=== PATIENT | female | born 2005 | race Caucasian/White ===

== ENCOUNTER 2024-02-28 15:35 | Emergency (ER) | payer BC, SELFPAY ==
--- NOTE | 2024-02-28 15:56 | ED_ITS ---
Discharge Plan Disposition Patient Disposition: Home, Self-Care Condition: Good Prescriptions Prescriptions: New azithromycin [Zithromax] 250 mg tablet 250 mg PO UD DOSE PK Qty: 6 0RF Rx Instructions: Take two (2) tablets today, then one (1) tablet days #2 thru #5 methylprednisolone 4 mg Tablets,Dose Pack 4 mg PO DIRECTED 6 Days Qty: 21 0RF Rx Instructions: Take 1 pack as directed for 6 days hmgydgqbherhszy-qdldemouo-RB [Bromfed DM] 2-30-10 mg/5 mL Syrup 5 ml PO Q6H PRN (Reason: Cough) Qty: 240 0RF Referrals Follow up/Referrals: Provider,Referral, MD [Primary Care Provider] - See instructions Activity Restrictions/Add. Instructions Additional Instructions/Restrictions: Drink plenty of fluids. Take tylenol or ibuprofen for pain or fever. Take the medications as directed. Follow up with your regular doctor. GO TO THE ER FOR ANY WORSENING SYMPTOMS Clinical Impressions Clinical Impression: Pharyngitis, Acute viral syndrome Stand Alone Forms Stand Alone Forms: Work/School Release Instructions Patient Instructions: Sore Throat, DI for Pharyngitis/Tonsillopharyngitis -- Child, DI for Viral Syndrome Print Language Print Language: South African Discharge ED Provider: Rich Martel [facility] General Stated complaint: Fever,MCDONALD,dizziness,head congestion Time Seen by Provider: 02/28/24 15:56 Related Data Previous Rx's ?Medication ?Instructions ?Recorded azithromycin 250 mg tablet 250 mg PO UD DOSE PK #6 tabs 02/28/24 (Zithromax) jzzwglewxwqgoqr-qamnhsuqstwkyid-PT 5 ml PO Q6H PRN Cough #240 mL 02/28/24 2 mg-30 mg-10 mg/5 mL oral syrup (Bromfed DM) methylprednisolone 4 mg tablets in 4 mg PO DIRECTED 6 days #21 tabs 02/28/24 a dose pack Allergies Allergy/AdvReac Type Severity Reaction Status Date / Time No Known Allergies Allergy Verified 02/28/24 16:05 [facility] Disclaimer: The information contained in this section may have been updated after the patient was seen, as this information can be updated by other users. Medical History (Updated 02/28/24 @ 16:20 by Rich Martel APRN) Migraine Social History Smoking Status: Never smoker alcohol intake: never current occupational status: employed Travel in the last 8 weeks: None ROS Obtained: Yes All systems reviewed & no additional complaints except as documented Constitutional Constitutional: Reports chills and Reports fever(s) Eyes Eyes: Denies eye discharge ENT Ears, Nose, Mouth, and Throat: Reports as per HPI Cardiovascular Cardiovascular: Denies chest pain Respiratory Respiratory: Denies chest congestion and Reports cough Gastrointestinal Gastrointestingal: Reports nausea; Denies abdominal pain, constipation, cramping, diarrhea or vomiting Musculoskeletal Musculoskeletal: Denies arthralgias Integumentary/Breasts Skin/Breast: Denies rash Neurologic Neurologic: Denies paresthesias Physical Exam General General appearance: alert and in no apparent distress Head Head exam: atraumatic, normocephalic and normal inspection Eye Eye exam: Present normal appearance, PERRL and EOMI ENT ENT exam: Present mucous membranes moist and normal external ear exam Expanded ENT Exam TM/Canal exam: Bilateral TM: erythema and bulging Nose exam: Absent sinus tenderness Mouth exam: Present normal external inspection; Absent drooling Teeth exam: Present normal inspection Throat exam: Present tonsillar erythema, tonsillomegaly and tonsillar exudate Neck Neck exam: Present normal inspection, full ROM and trachea midline; Absent tenderness, meningismus or lymphadenopathy Chest Chest inspection: Present normal inspection and symmetric chest wall rise; Absent tenderness Respiratory Respiratory exam: Present normal lung sounds bilaterally; Absent respiratory distress, wheezes, stridor or accessory muscle use Cardiovascular Cardiovascular exam: Present regular rate and normal rhythm; Absent systolic murmur or diastolic murmur Abdominal Exam Abdominal exam: Present soft and normal bowel sounds; Absent distention, tenderness, guarding, rebound or rigidity Extremities Exam Extremities exam: Present normal inspection and normal capillary refill; Absent calf tenderness Back Exam Back exam: Present normal inspection and full ROM; Absent tenderness, CVA tenderness (R) or CVA tenderness (L) Neurological Exam Neurological exam: Present alert, oriented X3 and CN II-XII intact Psychiatric Psychiatric exam: Present normal affect and normal mood Skin Skin exam: Present warm, dry, intact and normal color Medical Decision Making Medical Records Medical records reviewed: No I reviewed the patient's medical records. Screening: Per USPSTF and CDC recommendations, given the prevalence of disease in our region, it is our hospital?s policy to screen for HIV and viral Hepatitis for all patients aged 18 and over and those with ongoing risk factors. Champ Inquiry Pt receiving controlled substance: No Lab Data Lab results reviewed: Yes I reviewed the patient's lab results.
[2024-02-28 16:00] VITALS: BP 131/83; PULSE 87; RESP 18; TEMP 36.9; O2SAT 97; BMI 29.2
[2024-02-28 16:12] LABS: UTC Strep Screen (Rapid) Negative (Negative)
[2024-02-28 16:13] LABS: UTC Influenza A Antigen Negative (Negative); UTC Influenza B Antigen Negative (Negative)
[2024-02-28 16:25] VITALS: BP 131/83; PULSE 87; RESP 18; TEMP 36.9; O2SAT 97
== END 2024-02-28 16:28 | disposition home or self-care (01) ==
PROVIDERS: Emergency Provider Nurse Practitioner Family
DX: J02.9 Acute pharyngitis, unspecified (principal); B34.9 Viral infection, unspecified
CPT/HCPCS: 87635; 87804; 87880; 99213; G0381

== ENCOUNTER 2024-06-05 16:25 | Emergency (ER) | payer BC, SELFPAY ==
--- NOTE | 2024-06-05 16:36 | EXP.UTC ---
Discharge Plan Disposition Patient Disposition: Home, Self-Care Condition: Good Prescriptions Prescriptions: New azithromycin [Zithromax] 250 mg tablet 250 mg PO UD DOSE PK Qty: 6 0RF Rx Instructions: Take two (2) tablets today, then one (1) tablet days #2 thru #5 methylprednisolone 4 mg Tablets,Dose Pack 4 mg PO DIRECTED 6 Days Qty: 21 0RF Rx Instructions: Take 1 pack as directed for 6 days cpwpdtdnesvfekv-ygoikrwnb-WE [Bromfed DM] 2-30-10 mg/5 mL Syrup 5 ml PO Q6H PRN (Reason: Cough) Qty: 240 0RF Referrals Follow up/Referrals: Provider,Referral, MD [Primary Care Provider] - See instructions Activity Restrictions/Add. Instructions Additional Instructions/Restrictions: Drink plenty of fluids. Take tylenol or ibuprofen for pain or fever. Take the medications as directed. Follow up with your regular doctor. GO TO THE ER FOR ANY WORSENING SYMPTOMS Clinical Impressions Clinical Impression: Sinusitis, Pharyngitis, Acute viral syndrome Stand Alone Forms Stand Alone Forms: Work/School Release Instructions Patient Instructions: Sinusitis, DI for Sinusitis Print Language Print Language: Maltese Discharge ED Provider: Rich Martel [facility] General Stated complaint: sore throat,cough,eyes and ears hurt Time Seen by Provider: 06/05/24 16:36 Related Data Previous Rx's ?Medication ?Instructions ?Recorded azithromycin 250 mg tablet 250 mg PO UD DOSE PK #6 tabs 06/05/24 (Zithromax) kwmytnesuivbqso-ufhxdqonutrvgcx-EO 5 ml PO Q6H PRN Cough #240 mL 06/05/24 2 mg-30 mg-10 mg/5 mL oral syrup (Bromfed DM) methylprednisolone 4 mg tablets in 4 mg PO DIRECTED 6 days #21 tabs 06/05/24 a dose pack Allergies Allergy/AdvReac Type Severity Reaction Status Date / Time No Known Allergies Allergy Verified 02/28/24 16:05 [facility] Disclaimer: The information contained in this section may have been updated after the patient was seen, as this information can be updated by other users. Medical History (Updated 06/05/24 @ 17:17 by Rich Martel APRN) Migraine Social History (Updated 02/28/24 @ 16:52 by Rich Martel APRN) Smoking Status: Never smoker alcohol intake: never current occupational status: employed Travel in the last 8 weeks: None Have you lived/traveled outside US in past 30 days?: No Contact w/someone who lives/traveled outside US past 30 days?: No Exposure to someone with infectious disease in past 14 days?: No Do you have a fever (greater than 100.4 F or 38 C)?: No Have you tested positive for COVID-19: No Exposed to someone with COVID-19 in past 14 days?: No Do you have a sore throat?: Yes Do you have a cough?: Yes Do you have any weakness?: Yes Do you have any diarrhea?: No Are you experiencing any unusual bleeding?: No Do you have any muscle aches/pain?: Yes Do you have any abdominal pain?: Yes Are you experiencing loss of taste or smell?: No ROS Obtained: Yes All systems reviewed & no additional complaints except as documented Constitutional Constitutional: Reports chills and Reports fever(s) Eyes Eyes: Denies eye discharge ENT Ears, Nose, Mouth, and Throat: Reports as per HPI Cardiovascular Cardiovascular: Denies chest pain Respiratory Respiratory: Denies chest congestion and Reports cough Gastrointestinal Gastrointestingal: Reports nausea; Denies abdominal pain, constipation, cramping, diarrhea or vomiting Musculoskeletal Musculoskeletal: Denies arthralgias Integumentary/Breasts Skin/Breast: Denies rash Neurologic Neurologic: Denies paresthesias Physical Exam General General appearance: alert and in no apparent distress Eye Eye exam: Present normal appearance, PERRL and EOMI ENT ENT exam: Present mucous membranes moist and normal external ear exam Expanded ENT Exam External ear exam: Present normal external inspection TM/Canal exam: Bilateral TM: erythema and bulging Nose exam: Absent sinus tenderness Nasal speculum exam: Bilateral: normal Mouth exam: Present normal external inspection; Absent drooling Teeth exam: Present normal inspection Throat exam: Present tonsillar erythema and tonsillomegaly Neck Neck exam: Present normal inspection, full ROM and trachea midline; Absent tenderness, lymphadenopathy or thyromegaly Chest Chest inspection: Present normal inspection and symmetric chest wall rise; Absent tenderness or rash Respiratory Respiratory exam: Present normal lung sounds bilaterally; Absent respiratory distress, wheezes, stridor or accessory muscle use Cardiovascular Cardiovascular exam: Present regular rate, normal rhythm and normal heart sounds Abdominal Exam Abdominal exam: Present soft; Absent distention, tenderness, guarding, rebound or rigidity Extremities Exam Extremities exam: Present normal inspection, full ROM and normal capillary refill; Absent tenderness or calf tenderness Back Exam Back exam: Present normal inspection and full ROM; Absent tenderness Neurological Exam Neurological exam: Present alert and oriented X3 Psychiatric Psychiatric exam: Present normal affect and normal mood Skin Skin exam: Present warm, dry, intact and normal color Lymphatic Lymphatic Findings: no adenopathy Medical Decision Making Medical Records Medical records reviewed: No I reviewed the patient's medical records. Screening: Per USPSTF and CDC recommendations, given the prevalence of disease in our region, it is our hospital?s policy to screen for HIV and viral Hepatitis for all patients aged 18 and over and those with ongoing risk factors. Champ Inquiry Pt receiving controlled substance: No Lab Data Lab results reviewed: Yes I reviewed the patient's lab results.
[2024-06-05 16:41] VITALS: BP 128/88; PULSE 92; RESP 20; TEMP 36.7; O2SAT 99; BMI 30.6
[2024-06-05 16:46] LABS: UTC Strep Screen (Rapid) Negative (Negative)
[2024-06-05 17:22] VITALS: BP 128/88; PULSE 92; RESP 20; TEMP 36.7
[2024-06-05 17:27] LABS: Coronavirus 19, PCR Not Detected (NotDetected); Influenza A, PCR Not Detected (NotDetected); Influenza B, PCR Not Detected (NotDetected)
== END 2024-06-05 17:23 | disposition home or self-care (01) ==
PROVIDERS: Emergency Provider Nurse Practitioner Family
DX: B34.9 Viral infection, unspecified (principal); J02.9 Acute pharyngitis, unspecified; J32.9 Chronic sinusitis, unspecified
CPT/HCPCS: 87636; 87880; 99213; G0381

== ENCOUNTER 2024-11-18 14:14 | Outpatient (CLI) | payer BC, SELFPAY ==
[2024-11-18 20:20] LABS: Coronavirus 19, PCR Not Detected (NotDetected); Influenza A, PCR Not Detected (NotDetected); Influenza B, PCR Not Detected (NotDetected)
--- OUTSIDE RECORDS SUMMARY | 2024-11-19 10:20 | XMS_ITS | Patient Health Record ---
Author Organization [facility] Address [address] [place] [address] Care Team Providers Care Rn Residential Name Role Phone Talya Kumar Primary Care Provider Unavailrah e Talya Kumar Unavailable [phone] Allergies No Known Allergies Reason For Referral No Information Medications Medication SIG (Take, Route, Fr equency, Duration) Notes Start Date End Date Status Ondansetron HCl 8 MG 1 tablet Orally twi ce a day as needed; Duration: 10 days 12/22/2022 Active Imitrex 25 MG 1 tablet at least 2 hours between doses as needed Orally Twice a day; Duration: 30 days 12/22/2022 A ctive Topiramate 25 MG 1 tablet Orally once a day for a week then twice a day.; Duration: 30 days 12/22/2022 Active Immunizations Vaccine Route Administration Date Status Comme nts DTaP Unknown 2003 Administered DTaP Unknown 2003 Administered DTaP Unknown 01/07/2004 Administered DTaP Unknown 03/21/2006 Administered DTaP Unknown 07/03/2007 Administered HAVRIX IM Intramuscular 01/01/2019 Administered pt yaa erated injection well Hep B, adolescent or pediatric (11-19), 3 dose schedule Unknown 2003 Administered Hep B, adolescent or pediatric (11-19), 3 dose schedule Unknown 2003 Administered Hep B, adolescent or pediatric (11-19), 3 dose schedule Unknown 01/07/2004 Administered Hiberix/ActHib Unknown 2003 Administered Hiberix/ActHib Unknown 2003 Administered Hiberix/ActHib Unknown 01/07/2004 Administered HPV-9 IM Intramuscular 01/01/2019 Administered pt yaa erated injection well HPV-9 IM Intramuscular 07/17/2019 Administered IPV Unknown 2003 Administered IPV Unknown 2003 Administered IPV Unknown 01/07/2004 Administered IPV Unknown 03/21/2006 Administered IPV Unknown 07/03/2007 Administered Meningococcal B 3 dose lipoprotein IM Intramuscular 07/17/2019 Administered pt tolerated injection well Meningococcal MCV4P (CVX 114) IM Intramuscular 01/01/2019 Administered pt tolerated injection well Meningococcal MCV4P (CVX 114) IM Intramuscular 07/17/2019 Administered pt tolerated injection well MMR Unknown 02/18/2005 Administered MMR Unknown 07/03/2007 Administered Pneumococcal conjugate PCV 7 Unknown 2003 Administered Pneumococcal conjugate PCV 7 Unknown 2003 Administered Pneumococcal conjugate PCV 7 Unknown 01/07/2004 Administered Tdap IM Intramuscular 01/01/2019 Administered pt yaa erated injection well Varicella Unknown 02/18/2005 Administered Varicella Unknown 07/03/2007 Administered Varicella Unknown 12/30/2014 Administered Social History Tobacco Use: Social History Observation Description Date Details (start date - stop date) Never Smoker NA - NA Tobacco Use/Smoking Question Answer Notes Are you a nonsmoker Alcohol Screen (Audit-C) Question Answer Notes Did you have a drink containing alcohol in the p ast year? No Points 0 Interpretation Negative Sexual History Question Answer Notes Had sex in the past 12 months (vaginal, oral, or anal)? Yes with Men only Use protection? Yes PRAPARE Question Answer Notes Date Completed/Updated: 01/06/2023 What is your current housing situation? I have h ousing Are you worried about losing your housing? No What is the highest level of school that you have finished? 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 Check all that apply I do not have problems meeting my needs Has lack of transportation k ept you from medical appointments, meetings, work or from getting things needed for daily living? No How often do you see or talk to people that you care about and feel close to? (For example: talking to friends on the phone, visiting friends or family, going to yazidism or club meetings) More than 5 times a week How stressed are you? Stress is when someone feels tense, nervous, anxious, or cant sleep at night because their mind is troubled Not at all In the past year have you sp ent more than 2 nights in a row in a prison, senior care, residential center, or juvenile correctional facility? No Do you feel physically and e motionally safe where you currently live? Yes In the past year, have you b een afraid of your partner or ex-partner? No PRAPARE Score: 4 Are you a refugee? No What country are you from? [place] OPIOID Risk Tool (2018 Edition) Question Answer Notes Family Hx Alcohol? No Family Hx Illegal Drugs? No Family Hx Rx Drugs? No Personal Hx Alcohol? No Personal Hx Illegal Drugs? No Personal Hx Rx Drugs? No Age between 16-45 years? Yes History of Preadolescent Sexual Abuse? No ADD, OCD, Bipolar, Schizophrenia? No Depression? No TOTAL SCORE 1 Risk Level for Opioid Use low SBIRT (2018 Edition) Question Answer Notes Patient refused/declined SBIRT screening at this time? No 1. How often do you have a drink containing alco hol? Never 3. How often do you have five or more drinks on one occasion? Never SCORE 0 Interpretation Negative How many times in the past y ear have you used an illegal drug or used a prescription medication for non-medical reasons? 0 Total Count 0 Interpretation Negative Problems Problem Type SNOMED Code ICD Code Onset Dates Problem Status W/U Status Risk Notes Problem Vaccination given (372334659) Encounter for immunization (Z23) Active confirmed Problem Nausea (644498125) Nausea (R11.0) Active confirmed Problem Influenza caused by Influenza A virus (260719650) Influenza due to identified novel influenza A virus with other manifestations (J09.X9) Active confirmed Problem Child health medical examination (905354423) Encounter for routine child health examination with abnormal findings (Z00.121) Active confirmed Problem Overweight (801127179) Overweight (E66.3) Active confirmed Problem Amblyopia of right eye (732170102740042) Amblyopia suspect, right eye (H53.041) Active confirmed Problem Acute frontal sinusitis (75080947) Acute non-recurrent frontal sinusitis (J01.10) 05/29/19 22 Active confirmed Problem Shoulder joint pain (216206798) Acute pain of right shoulder (M25.511) Active confirmed Problem Exercises teaching, guidance, and counseling (712952301) Exercise counseling (Z71.82) Active confirmed Problem Contact dermatitis (22268948) Contact dermatitis, unspecified contact dermatitis type, unspecified trigger (L25.9) Active confirmed Problem Body mass index 25-29 - overweight (382438639) Body mass index 26.0-26.9, adult (Z68.26) 07/06/19 22 Active confirmed Problem Allergic rhinitis (31039965) Allergic rhinitis (J30.9) Active confirmed Problem Acute pharyngitis (430624821) Sorethroat (J02.9) Active confirmed Problem Lack of energy (757690227) Lack of energy (R53.83) Active confirmed Problem Conjunctivitis (8570523) Conjunctivitis of both eyes, unspecified conjunctivitis type (H10.9) Active confirmed Problem Dietary management surveillance (159262401) Nutritional counseling (Z71.3) Active confirmed Problem Overweight in childhood (finding) (833320267) Body mass index [BMI] pediatric, 85th percentile to less than 95th percentile for age (Z68.53) Active confirmed Problem Frequent headache (finding) (548222659) Frequent headaches (R51.9) Active confirmed Plan Of Treatment Pending Test Test Name Order Date MRI : Shoulder, right 05/01/2020 MRI : Head w/wo Contrast 05/01/2020 STREP SCREEN 07/06/2021 Thyroid Panel With TSH 12/22/2022 CBC With Differential/Platelet 3 Comp. Metabolic Panel (14) 12/22/2022 Insurance Providers Payer Name Payer Address Payer Phone Subscriber Number Group Number Insured Name Patient Relationship to Insured Coverage Start Date Coverage End Date THP Medicaid UB after [id number] [place] [id number] Taya Mario Child - Insured has Financial Responsibility [employer] [address] [place] [address] [id number] Taya Mario Child - Insured has Financial Responsibility Medications Administered Medication Instructions Date of Administration Dosage Notes Kenalog 40 05/01/2020 40 mg Rocephin 1gm 05/29/2021 1000 mg Rocephin 1gm 07/06/2021 1000 mg Toradol 30 05/01/2020 30 mL Medical (General) History Medical History History ICD Code unremarkable Surgical History Surgery Date(Month/Year)
== END 2024-11-18 23:59 | disposition home or self-care (01) ==
LOC: LAB.DROPOF 11-19 10:18
PROVIDERS: PCP Nurse Practitioner; Visit Provider Nurse Practitioner
DX: R52 Pain, unspecified (principal)
CPT/HCPCS: 87631

== ENCOUNTER 2024-11-19 17:35 | Outpatient (CLI) | payer BC, SELFPAY ==
--- OUTSIDE RECORDS SUMMARY | 2024-11-20 07:18 | XMS_ITS | Patient Health Record ---
Author Organization [facility] Address [address] [place] [address] Care Team Providers Care Plier Worker Name Role Phone Talya Kumar Primary Care Provider Unavailabl e Talya Kumar Unavailable [phone] Allergies No Known Allergies Reason For Referral [...] Vaccine Route Administration Date Status Comme nts Varicella Unknown 02/18/2005 Administered Varicella Unknown 07/03/2007 Administered Varicella Unknown 12/30/2014 Administered Tdap IM Intramuscular 01/01/2019 Administered pt yaa erated injection well Pneumococcal conjugate PCV 7 Unknown 2003 Administered Pneumococcal conjugate PCV 7 Unknown 2003 Administered Pneumococcal conjugate PCV 7 Unknown 01/07/2004 Administered MMR Unknown 02/18/2005 Administered MMR Unknown 07/03/2007 Administered Meningococcal MCV4P (CVX 114) IM Intramuscular 01/01/2019 Administered pt tolerated injection well Meningococcal MCV4P (CVX 114) IM Intramuscular 07/17/2019 Administered pt tolerated injection well Meningococcal B 3 dose lipoprotein IM Intramuscular 07/17/2019 Administered pt tolerated injection well IPV Unknown 2003 Administered IPV Unknown 2003 Administered IPV Unknown 01/07/2004 Administered IPV Unknown 03/21/2006 Administered IPV Unknown 07/03/2007 Administered HPV-9 IM Intramuscular 01/01/2019 Administered pt yaa erated injection well HPV-9 IM Intramuscular 07/17/2019 Administered Hiberix/ActHib Unknown 2003 Administered Hiberix/ActHib Unknown 2003 Administered Hiberix/ActHib Unknown 01/07/2004 Administered Hep B, adolescent or pediatric (11-19), 3 dose schedule Unknown 2003 Administered Hep B, adolescent or pediatric (11-19), 3 dose schedule Unknown 2003 Administered Hep B, adolescent or pediatric (11-19), 3 dose schedule Unknown 01/07/2004 Administered HAVRIX IM Intramuscular 01/01/2019 Administered pt yaa erated injection well DTaP Unknown 2003 Administered DTaP Unknown 2003 Administered DTaP Unknown 01/07/2004 Administered DTaP Unknown 03/21/2006 Administered DTaP Unknown 07/03/2007 Administered Social History Tobacco Use: Social History [...] GED 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 Stress is when someone feels tense, nervous, anxious, or cant sleep at night because their mind is troubled Not at all In the past year have you sp ent more than 2 nights in a row in a intermediate, longterm, halfway center, or juvenile correctional facility? No Do [...] W/U Status Risk Notes Problem Vaccination given (072974770) Encounter for immunization (Z23) Active confirmed Problem Nausea (638661163) Nausea (R11.0) Active confirmed Problem Influenza caused by Influenza A virus (191689762) Influenza due to identified novel influenza A virus with other manifestations (J09.X9) Active confirmed Problem Child health medical examination (794323581) Encounter for routine child health examination with abnormal findings (Z00.121) Active confirmed Problem Overweight (078015311) Overweight (E66.3) Active confirmed Problem Amblyopia of right eye (504268682441098) Amblyopia suspect, right eye (H53.041) Active confirmed Problem Acute frontal sinusitis (30776445) Acute non-recurrent frontal sinusitis (J01.10) 05/29/19 22 Active confirmed Problem Shoulder joint pain (629141505) Acute pain of right shoulder (M25.511) Active confirmed Problem Exercises teaching, guidance, and counseling (161164270) Exercise counseling (Z71.82) Active confirmed Problem Contact dermatitis (93014407) Contact dermatitis, unspecified contact dermatitis type, unspecified trigger (L25.9) Active confirmed Problem Body mass index 25-29 - overweight (201927335) Body mass index 26.0-26.9, adult (Z68.26) 07/06/19 22 Active confirmed Problem Allergic rhinitis (86023022) Allergic rhinitis (J30.9) Active confirmed Problem Acute pharyngitis (480184978) Sorethroat (J02.9) Active confirmed Problem Lack of energy (723246700) Lack of energy (R53.83) Active confirmed Problem Conjunctivitis (8069182) Conjunctivitis of both eyes, unspecified conjunctivitis type (H10.9) Active confirmed Problem Dietary management surveillance (632893948) Nutritional counseling (Z71.3) Active confirmed Problem Overweight in childhood (finding) (257132850) Body mass index [BMI] pediatric, 85th percentile to less than 95th percentile for age (Z68.53) Active confirmed Problem Frequent headache (finding) (751071179) Frequent headaches (R51.9) Active confirmed Plan Of [...] Coverage End Date THP Medicaid UB after [id number] [place] [id number] [id number] Taya Mario Child - Insured has Financial Responsibility [employer] [address] [place] [address] [id number] Taya Mario Child - Insured has Financial Responsibility Medications Administered Medication Instructions Date of Administration Dosage Notes Kenalog 40 05/01/2020 40 mg Rocephin 1gm 05/29/2021 1000 mg Rocephin 1gm 07/06/2021 1000 mg Toradol 30 05/01/2020 30 mL Medical (General) History Medical History History ICD Code unremarkable Surgical History Surgery Date(Month/Year)
== END 2024-11-19 23:59 | disposition home or self-care (01) ==
LOC: LAB.DROPOF 11-20 07:16
PROVIDERS: PCP Student in an Organized Health Care Education/Training Program; Visit Provider Student in an Organized Health Care Education/Training Program
DX: R10.9 Unspecified abdominal pain (principal)
CPT/HCPCS: 87086; 87088; 87186

== ENCOUNTER 2025-01-15 11:04 | Outpatient (CLI) | payer BC, SELFPAY ==
[2025-01-15 14:25] LABS: Coronavirus 19, PCR Not Detected (NotDetected); Influenza A, PCR Not Detected (NotDetected); Influenza B, PCR Not Detected (NotDetected)
--- OUTSIDE RECORDS SUMMARY | 2025-01-17 12:55 | XMS_ITS | Patient Health Record ---
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 Stress is when someone feels tense, nervous, anxious, or cant sleep at night because their mind is troubled Not at all In the past year have you sp ent more than 2 nights in a row in a care home, [facility], half-way center, or juvenile correctional facility? No Do [...] W/U Status Risk Notes Problem Vaccination given (714068274) Encounter for immunization (Z23) Active confirmed Problem Nausea (137330372) Nausea (R11.0) Active confirmed Problem Influenza caused by Influenza A virus (115285136) Influenza due to identified novel influenza A virus with other manifestations (J09.X9) Active confirmed Problem Child health medical examination (220542763) Encounter for routine child health examination with abnormal findings (Z00.121) Active confirmed Problem Overweight (236458601) Overweight (E66.3) Active confirmed Problem Amblyopia of right eye (986737095210020) Amblyopia suspect, right eye (H53.041) Active confirmed Problem Acute frontal sinusitis (27869692) Acute non-recurrent frontal sinusitis (J01.10) 05/29/19 22 Active confirmed Problem Shoulder joint pain (638872209) Acute pain of right shoulder (M25.511) Active confirmed Problem Exercises teaching, guidance, and counseling (488162630) Exercise counseling (Z71.82) Active confirmed Problem Contact dermatitis (18065241) Contact dermatitis, unspecified contact dermatitis type, unspecified trigger (L25.9) Active confirmed Problem Body mass index 25-29 - overweight (318982089) Body mass index 26.0-26.9, adult (Z68.26) 07/06/19 22 Active confirmed Problem Allergic rhinitis (72891001) Allergic rhinitis (J30.9) Active confirmed Problem Acute pharyngitis (134107415) Sorethroat (J02.9) Active confirmed Problem Lack of energy (448250206) Lack of energy (R53.83) Active confirmed Problem Conjunctivitis (2934551) Conjunctivitis of both eyes, unspecified conjunctivitis type (H10.9) Active confirmed Problem Dietary management surveillance (298255507) Nutritional counseling (Z71.3) Active confirmed Problem Overweight in childhood (finding) (928695093) Body mass index [BMI] pediatric, 85th percentile to less than 95th percentile for age (Z68.53) Active confirmed Problem Frequent headache (finding) (992780571) Frequent headaches (R51.9) Active confirmed Plan Of [...] Coverage End Date [employer] Medicaid UB after [id number] [place] [address] [id number] Taya Mario Child - Insured has Financial Responsibility Interview [employer] [address] [place] [address] [id number] Taya Mario Child - Insured has Financial Responsibility Medications Administered Medication Instructions Date of Administration Dosage Notes Kenalog 40 05/01/2020 40 mg Rocephin 1gm 05/29/2021 1000 mg Rocephin 1gm 07/06/2021 1000 mg Toradol 30 05/01/2020 30 mL Medical (General) History Medical History History ICD Code unremarkable Surgical History Surgery Date(Month/Year)
== END 2025-01-15 23:59 | disposition home or self-care (01) ==
LOC: LAB.DROPOF 01-17 12:51
PROVIDERS: PCP Student in an Organized Health Care Education/Training Program; Visit Provider Student in an Organized Health Care Education/Training Program
DX: N39.0 Urinary tract infection, site not specified (principal); R50.9 Fever, unspecified
CPT/HCPCS: 87086; 87088; 87186; 87631